=== PATIENT | male | born 1985 | race Caucasian/White ===

== ENCOUNTER 2023-02-24 09:18 | Emergency (ER) | payer SELFPAY ==
[2023-02-24] MEDS: Sodium Chloride 0.9% 1,000 ML IV ONE (09:34)
[2023-02-24] MEDS: Ondansetron 4 MG/2 ML SDV IVPUSH PRN (09:36)
[2023-02-24 09:49] LABS: BASOPHILS ABSOLUTE AUTO 0.02 10^3/uL (0.00-0.50); BASOPHILS PERCENT AUTO 0.2 % (0-1); EOSINOPHILS ABSOLUTE AUTO 0.26 10^3/uL (0.00-1.50); EOSINOPHILS PERCENT AUTO 3.1 % (0-6); HEMATOCRIT 46.3 % (42.0-52.0); HEMOGLOBIN 16.3 g/dL (14.0-18.0); IMMATURE GRAN ABSOLUTE AUTO 0.02 10^3/uL (0.00-0.49); IMMATURE GRAN PERCENT AUTO 0.2 % (0.0-4.9); LYMPHOCYTES ABSOLUTE AUTO 3.15 10^3/uL (0.60-5.00); LYMPHOCYTES PERCENT AUTO 37.3 % (24-44); MEAN CORPUSCULAR HGB CONC 35.2 g/dL (32.0-36.0); MEAN CORPUSCULAR VOLUME 93.7 fL (83.0-97.0); MONOCYTES ABSOLUTE AUTO 0.64 10^3/uL (0.00-1.50); MONOCYTES PERCENT AUTO 7.6 % (0-10); NEUTROPHILS ABSOLUTE AUTO 4.35 x10^3/uL (1.80-8.00); NEUTROPHILS PERCENT AUTO 51.6 % (41-71); PLATELET COUNT,PLT 211 10^3/uL (150-400); RED BLOOD CELL COUNT 4.94 x10^6/uL (4.50-6.00); WHITE BLOOD CELL COUNT,WBC 8.4 10^3/uL (4.0-11.0)
[2023-02-24 10:16] LABS: ALANINE AMINOTRANSFERASE,ALT 51 U/L (12-78); ALBUMIN 4.6 g/dL (3.4-5.0); ALKALINE PHOSPHATASE 121 U/L (46-116); ASPARTATE AMNIOTRANSFERASE,AST 27 U/L (15-37); BILIRUBIN TOTAL 0.5 mg/dL (0.0-1.0); BLOOD UREA NITROGEN,BUN 16 mg/dL (7-18); CALCIUM 9.2 mg/dL (8.4-10.1); CARBON DIOXIDE,CO2 30 mmol/L (21-32); CHLORIDE,CL 102 mEq/L (98-106); CREATININE 1.1 mg/dL (0.7-1.3); EST CRCL DRUG DOSING (CG) 91.95 mL/min; GLUCOSE RANDOM 105 mg/dL (75-99); POTASSIUM,K 4.4 mEq/L (3.5-5.0); SODIUM,NA 139 mEq/L (136-145)
[2023-02-24 10:18] LABS: C-REACTIVE PROTEIN < 0.2 mg/dL (0.2-0.8); ESTIMATED GFR 89 mL/min (>=60)
== END 2023-02-24 11:00 | disposition home or self-care (01) ==
LOC: CC.ED 09:18
DX: A08.4 Viral intestinal infection, unspecified (principal); Z88.8 Allergy status to other drugs, medicaments and biological substances; Z72.0 Tobacco use
CPT/HCPCS: 36415; 80053; 83735; 85025; 86140; 96361; 96374; 99283; J2405; J7030